=== PATIENT | female | born 1990 | race Caucasian/White ===

== ENCOUNTER 2017-11-23 09:52 | Emergency (ER) | payer SELFPAY ==
[~2017-11-23] VITALS: Ht 160 cm; Wt 60.0 kg
[2017-11-23] MEDS ORDERED: KETOROLAC 60MG/2ML VIAL IM ONE (11:30)
[2017-11-23] MEDS ORDERED: LORAZEPAM 1MG TABLET PO ONE (11:30)
[2017-11-23] MEDS ORDERED: TRAMADOL 50MG TABLET PO ONE (13:00)
[2017-11-23] MEDS ORDERED: MECLIZINE 12.5MG TABLET PO ONE (13:00)
[2017-11-23 15:38] LABS: HCG SCREEN NEGATIVE
[2017-11-23 17:14] VITALS: BP 116/79
== END 2017-11-23 17:46 | disposition home or self-care (01) ==
LOC: ER 11:05
DX: M54.5 Low back pain (principal)
CPT/HCPCS: 72100; 84703; 96372; 99285; J1885; Z7610; J8597